=== PATIENT | male | born 1955 | race Caucasian/White ===

== ENCOUNTER 2018-12-08 14:11 | Day surgery (SDC) | payer MEDICARE ==
[2018-12-07 16:21] VITALS: BMI 30.7
[2018-12-08 15:09] LABS: Hemoglobin 14.9 g/dL (14.0-18.0); Mean Corpuscular HGB CONC 34.5 g/dL (32.0-36.0); Mean Corpuscular Hemoglobin 30.9 pg (27.0-31.0); Mean Corpuscular Volume 89.7 fL (78.0-98.0); Mean Platelet Volume 8.8 fL (7.4-10.4); Platelet Count 212 thou/uL (130-400); RBC Distribution Width 11.7 % (11.5-14.5); Red Blood Cell (RBC) Count 4.83 mill/uL (4.70-6.10); White Blood Cell (WBC) Count 7.8 thou/uL (4.8-10.8)
[2018-12-08] MEDS ORDERED: PROPOFOL 200 MG/20 ML VIAL ONE (15:13)
[2018-12-08 15:24] LABS: Anion Gap 12 mmol/L (10-20); BUN (Urea Nitrogen) 23 mg/dL (8.4-25.7); Calc. Creatinine Clearance 72 mL/min (70-130); Calcium 9.4 mg/dL (7.8-10.44); Carbon Dioxide 23 mmol/L (23-31); Chloride 106 mmol/L (98-107); Estimated GFR-MDRD 49; Glucose 249 mg/dL (80-115); Potassium 4.2 mmol/L (3.5-5.1); Sodium 137 mmol/L (136-145)
[2018-12-08 15:56] LABS: Eosinophils 2 % (0-10); Lymphocytes 58 % (21-51); MDiff Complete? YES; Monocytes 4 % (0-10); Neutrophil 30 % (42-75); Platelet Morphology Comment Appears Adequate; RBC Morphology Normal; Reactive Lymphocytes 5 % (0-10)
[2018-12-08] MEDS ORDERED: Lidocaine 1% w/Epinephrine 1:100K 20 ML VIAL ONE (16:31)
[2018-12-08] MEDS ORDERED: Bacitracin Zinc Ointment 30 gm TUBE ONE (16:31)
[2018-12-08] MEDS ORDERED: Fentanyl 100 MCG/2 ML VIAL ONE (16:40)
[2018-12-08] MEDS ORDERED: Midazolam HCl 2 mg/2 ml Vial ONE (16:40)
--- NOTE | 2018-12-09 10:32 | OP ---
DATE OF PROCEDURE: 12/08/2018 PREOPERATIVE DIAGNOSIS: Multiple sebaceous cysts of the scalp. POSTOPERATIVE DIAGNOSIS: Multiple sebaceous cysts of the scalp. PROCEDURE PERFORMED: Excision of sebaceous cysts of the scalp measuring 2 cm x3 of three separate lesions. PROCEDURE IN DETAIL: After consent was obtained, the patient was identified and brought to the operating room table in the supine position. General monitored anesthesia was obtained. The patient was positioned for surgery. The areas of intended surgery were prepped and draped in a sterile fashion and infiltrated with 1% lidocaine 100,000 epinephrine. We then made sequential elliptical incisions around each sebaceous cyst and then meticulously dissected them from the subcutaneous tissues through the scalp tissues and down to the galea and periosteum of the skull. We then undermined the tissues laterally and reapproximated the open wounds in a complex fashion with 4-0 Monocryl used to reapproximate the subcutaneous tissues and 4-0 Prolene for the skin. Dermabond was then placed on each of the separate 3 lesions after they were closed. The patient was then awakened, taken to the recovery room in stable condition prior to discharge home. Job ID: [id number] [facility]
--- NOTE | 2018-12-09 16:22 | EKG ---
Test Reason : PREOP Blood Pressure : / mmHG Vent. Rate : 080 BPM Atrial Rate : 080 BPM P-R Int : 144 ms QRS Dur : 088 ms QT Int : 390 ms P-R-T Axes : 061 006 039 degrees QTc Int : 449 ms Normal sinus rhythm Inferior infarct , age undetermined Abnormal ECG Confirmed by SOPHIA YOUNG, DR. Robertson ([id number]) on 12/09/2018 4:22:25 PM Referred By: BAUDILIO Confirmed By:DR. Ailyn CORTES MD
--- NOTE | 2018-12-30 05:41 | PQF ---
[facility] POST DISCHARGE CLINICAL DOCUMENTATION IMPROVEMENT CLARIFICATION FORM l Todays Date: 12/30/18 l Patients Name SULMA GARCIA l l Admit Date 12/08/18 l Disch Date 12/08/18 Php Wordpress Developer Name Andrés Durham Email: [email or web address]: [phone] To be completed by Php Wordpress Developer: Present Clinical Indicators - Signs / Symptoms Results and Location in Medical Record [ ] Documentation of: [ ] [ ] Documentation of: [ ] [ ] Documentation of: [ ] [ ] Documentation of: [ ] [ ] Risks [ ] [ ] [ ] Treatment [ ] Sebaceous cysts of scalp (x3) Query of margins for all 3 excised sebaceous cysts of scalp [ ] [ ] To be completed by Physician: JUAN ELLIOTT The documentation in this patients record requires clarification to ensure coding compliance and accuracy. Check the appropriate box and include in your discharge summary. [ ] [ ] [ ] [ ] Please check this box if this does not apply to this patient [ ] Unable to determine [ ] Other diagnosis: Review the following information and exercise your independent professional judgment in responding to the clarification. Based upon the clinical findings, risk factors, and treatment, please clarify if you are treating one of the above probable or suspected diagnoses. Physician Signature: Date Time MTDD
== END 2018-12-08 19:30 | disposition home or self-care (01) ==
LOC: SDC 14:11
PROVIDERS: ATTEND Specialist
DX: L72.11 Pilar cyst (principal); I11.9 Hypertensive heart disease without heart failure; E11.9 Type 2 diabetes mellitus without complications; Z87.891 Personal history of nicotine dependence; Z79.4 Long term (current) use of insulin; Z79.82 Long term (current) use of aspirin; Z79.899 Other long term (current) drug therapy; Z95.5 Presence of coronary angioplasty implant and graft
CPT/HCPCS: 80048; 85025; 88304; 93005; 93010; J2001; J2250; J2704; J3010

== ENCOUNTER 2019-08-31 18:00 | Outpatient (CLI) | payer MEDICARE | END 2019-08-31 18:01 | disposition home or self-care (01) | LOC: SLEEPLAB 18:00 | PROVIDERS: ATTEND Family Medicine | DX: G47.33 Obstructive sleep apnea (adult) (pediatric) (principal); R53.83 Other fatigue; I10 Essential (primary) hypertension; G47.00 Insomnia, unspecified; G47.10 Hypersomnia, unspecified; E11.9 Type 2 diabetes mellitus without complications | CPT/HCPCS: 95801 ==

== ENCOUNTER 2019-09-07 09:55 | Outpatient (CLI) | payer MEDICARE ==
--- NOTE | 2019-09-07 13:03 | CT ---
CT ABDOMEN AND PELVIS WITH IV CONTRAST: DATE: 09/07/2019. PROVIDED CLINICAL HISTORY: Left upper quadrant pain. FINDINGS: Visualized lung bases are free of significant opacity. Small hiatal hernia. The liver, spleen, pancreas, kidneys, and adrenal glands demonstrate an unremarkable CT appearance. No bowel dilatation, inflammatory fat stranding, free fluid, or lymph node enlargement apparent. The appendix appears normal. Occasional vascular calcification. The osseous structures demonstrate no concerning lytic or blastic lesions. The abdominal wall appear s normal. IMPRESSION: No evidence for an acute process. POS: [facility]
== END 2019-09-07 09:56 | disposition home or self-care (01) ==
LOC: CT 09:55
PROVIDERS: ATTEND Internal Medicine Gastroenterology
DX: R10.12 Left upper quadrant pain (principal)
CPT/HCPCS: 36415; 74177; 80053; 82103; 82104; 83516; 83550; 85610; 86706; 86708; 86803; 87340

== ENCOUNTER 2020-08-26 08:25 | Outpatient (CLI) | payer MEDICARE | END 2020-08-26 08:26 | disposition home or self-care (01) | LOC: CT 08:25 | PROVIDERS: ATTEND Neurological Surgery | DX: H49.21 Sixth [abducent] nerve palsy, right eye (principal); I70.90 Unspecified atherosclerosis | CPT/HCPCS: 70496; 70498 ==